=== PATIENT | female | born 2005 | race Caucasian/White ===

== ENCOUNTER 2024-08-26 10:57 | Inpatient (IN) | payer BC, MEDICAID ==
[2024-08-26] MEDS ORDERED: Sodium Chloride 0.9% 10 ML Syringe FLUSH PRN (12:33)
[2024-08-26] MEDS ORDERED: Lidocaine 1% 50 ML MDV INJECT PRN (12:33)
[2024-08-26] MEDS ORDERED: Oxytocin/0.9 % Sodium Chloride 30 UNIT/500 ML BAG IV SCH (12:45)
[2024-08-26 13:10] LABS: BASOPHILS PERCENT AUTO 0.2 % (0.0-1.0); EOSINOPHILS ABSOLUTE AUTO 0.1 K/mm3 (0.0-0.4); EOSINOPHILS PERCENT AUTO 0.6 % (0.0-6.0); HEMATOCRIT 31.5 % (37.0-47.0); HEMOGLOBIN 10.7 gm/dl (12.0-16.0); IMMATURE GRAN ABSOLUTE AUTO 0.03 K/mm3 (0.00-0.05); IMMATURE GRAN PERCENT AUTO 0.3 % (0.0-0.4); LYMPHOCYTES ABSOLUTE AUTO 2.2 K/mm3 (1.0-4.8); LYMPHOCYTES PERCENT AUTO 20.9 % (24.0-44.0); MEAN CORPUSCULAR HEMOGLOBIN 31.8 pg (28.0-32.0); MEAN CORPUSCULAR VOLUME 93.5 fl (83.0-99.0); MEAN PLATELET VOLUME 10.3 fl (9.4-12.3); MONOCYTES ABSOLUTE AUTO 0.9 K/mm3 (0.0-0.8); MONOCYTES PERCENT AUTO 8.2 % (0.0-8.0); NEUTROPHILS ABSOLUTE AUTO 7.4 K/mm3 (1.8-7.7); NEUTROPHILS PERCENT AUTO 69.8 % (41.0-71.0); PLATELET COUNT,PLT 214 K/mm3 (150-400); RED BLOOD CELL COUNT 3.37 M/mm3 (4.10-5.30); WHITE BLOOD CELL COUNT,WBC 10.55 K/mm3 (3.9-11.3)
[2024-08-26] MEDS: Lactated Ringers 1,000 ML IV SCH (13:50)
[2024-08-26] MEDS: Oxytocin/0.9 % Sodium Chloride 30 UNIT/500 ML BAG IV SCH (13:51)
[2024-08-26] MEDS ORDERED: diphenhydrAMINE 50 MG/ML SDV IVPUSH PRN (15:10)
[2024-08-26] MEDS ORDERED: ePHEDrine 50 MG/ML SDV IVPUSH PRN (15:10)
[2024-08-26] MEDS ORDERED: Bupivacaine/fentaNYL/NS 100 ML Bag EPIDUR PRN (15:10)
[2024-08-26] MEDS ORDERED: fentaNYL 100 MCG/2 ML SDV EPIDUR PRN (15:10)
[2024-08-26] MEDS: Nalbuphine 10 MG/1 ML Vial IVPUSH PRN (21:12)
[2024-08-26] MEDS: Ondansetron 4 MG/2 ML SDV IVPUSH PRN (22:35)
[2024-08-27] MEDS ORDERED: Simethicone 80 MG Tab.Chew PO PRN (00:52)
[2024-08-27] MEDS ORDERED: Hydrocortisone Acetate 25 MG Supp RECTAL PRN (00:52)
[2024-08-27] MEDS ORDERED: Magnesium Hydroxide 400 MG/5 ML Susp 30 ML Cup PO PRN (00:52)
[2024-08-27] MEDS ORDERED: Oxytocin/0.9 % Sodium Chloride 30 UNIT/500 ML BAG IV SCH (00:52)
[2024-08-27] MEDS: Witch Hazel Medicated Pads 40/Jar TOP PRN (01:58)
[2024-08-27] MEDS: Benzocaine/Menthol 20%-0.5% Spray 78 GM Cannister TOP PRN (01:58)
[2024-08-27] MEDS: Acetaminophen 325 MG Tab PO SCH ×3 (02:20→13:12)
[2024-08-27] MEDS: Prenatal Multivitamin with Calcium/Folic Acid/Iron Tab PO SCH (08:49)
[2024-08-27] MEDS: Docusate Sodium 100 MG Cap PO PRN (22:35)
[2024-08-28] MEDS: Acetaminophen/HYDROcodone 325-5 MG Tab PO ONE (11:00)
== END 2024-08-28 17:00 | disposition home or self-care (01) | DRG 560 ==
LOC: JD.OBCHECK 10:57 → JD.OB 11:02 → JD.OBCHECK 11:12 → JD.OB 11:13 → OBSVTOIN 23:20 → JD.OB 23:21
PROVIDERS: ADMIT Obstetrics & Gynecology; ATTEND Obstetrics & Gynecology
PROC: 10E0XZZ Delivery of Products of Conception, External Approach (ICD-10-PCS; principal; 2024-08-26)
PROC: 10907ZC Drainage of Amniotic Fluid, Therapeutic from Products of Conception, Via Natural or Artificial Opening (ICD-10-PCS; 2024-08-26)
PROC: 3E0P7VZ Introduction of Hormone into Female Reproductive, Via Natural or Artificial Opening (ICD-10-PCS; 2024-08-26)
DX: O99.334 Smoking (tobacco) complicating childbirth (principal); Z37.0 Single live birth; F17.210 Nicotine dependence, cigarettes, uncomplicated; O70.0 First degree perineal laceration during delivery; O77.0 Labor and delivery complicated by meconium in amniotic fluid; Z3A.37 37 weeks gestation of pregnancy; Z86.19 Personal history of other infectious and parasitic diseases; Z98.890 Other specified postprocedural states; Z90.89 Acquired absence of other organs
CPT/HCPCS: 36415; 59025; 59409; 82947; 84112; 85025; 86592; 86850; 86900; 86901; A9270-GY; J2300; J2405; J7120; J7999

== ENCOUNTER 2025-07-08 16:51 | Emergency (ER) | payer BC, MEDICAID ==
[2025-07-08 19:31] LABS: BASOPHILS ABSOLUTE AUTO 0.0 K/mm3 (0.0-0.2); BASOPHILS PERCENT AUTO 0.2 % (0.0-1.0); EOSINOPHILS ABSOLUTE AUTO 0.2 K/mm3 (0.0-0.4); EOSINOPHILS PERCENT AUTO 2.0 % (0.0-6.0); IMMATURE GRAN ABSOLUTE AUTO 0.01 K/mm3 (0.00-0.05); IMMATURE GRAN PERCENT AUTO 0.1 % (0.0-0.4); LYMPHOCYTES ABSOLUTE AUTO 2.7 K/mm3 (1.0-4.8); LYMPHOCYTES PERCENT AUTO 30.2 % (24.0-44.0); MEAN PLATELET VOLUME 10.7 fl (9.4-12.3); MONOCYTES ABSOLUTE AUTO 0.7 K/mm3 (0.0-0.8); MONOCYTES PERCENT AUTO 7.8 % (0.0-8.0); NEUTROPHILS ABSOLUTE AUTO 5.3 K/mm3 (1.8-7.7); NEUTROPHILS PERCENT AUTO 59.7 % (41.0-71.0); NRBC ABSOLUTE 0.00 (0.00-0.02); NRBC PERCENT 0.0 % (0.0-0.2); PLATELET COUNT,PLT 230 K/mm3 (150-400); RED BLOOD CELL COUNT 4.69 M/mm3 (4.10-5.30); WHITE BLOOD CELL COUNT,WBC 8.86 K/mm3 (3.9-11.3)
[2025-07-08 19:34] LABS: APPEARANCE,URINE CLEAR (Clear); GLUCOSE,URINE NEGATIVE (Negative); OCCULT BLOOD,URINE NEGATIVE (Negative)
[2025-07-08] MEDS: Ondansetron 4 MG/2 ML SDV IV STA (19:38)
[2025-07-08 19:41] LABS: BUPRENORPHINE SCREEN,URINE NEGATIVE (CUTOFF=10); METHADONE SCREEN, URINE NEGATIVE (CUTOFF=200); METHAMPHETAMINES SCREEN, URINE NEGATIVE (CUTOFF=500); OXYCODONE SCREEN,URINE NEGATIVE (CUT0FF=100); THC SCREEN,URINE 20 NG/ML PRESUMPTIVE POSITIVE (CUTOFF=50)
[2025-07-08 19:44] LABS: EPITHELIAL CELLS,URINE 0-5 /hpf (0-5)
[2025-07-08 19:46] LABS: A/G RATIO 1.5 (1-2); ALANINE AMINOTRANSFERASE,ALT 10.0 U/L (14-59); ASPARTATE AMNIOTRANSFERASE,AST 11.0 U/L (15-37); BILIRUBIN TOTAL 1.1 mg/dL (0.2-1.0); BLOOD UREA NITROGEN,BUN 11.0 mg/dL (7-18); CARBON DIOXIDE,CO2 24.0 mEq/L (21-32); CHLORIDE,CL 105.0 mEq/L (98-107); CREATINE KINASE,CK 37.0 U/L (26-192); CREATININE 0.7 mg/dL (0.55-1.02); EST CRCL DRUG DOSING (CG) 132.86 mL/min; ESTIMATED GFR 126.0 mL/min (>60); GLUCOSE RANDOM 95.0 mg/dL (70-99); POTASSIUM,K 3.6 mEq/L (3.5-5.1); PROTEIN TOTAL,TP 7.7 g/dl (6.4-8.2); SODIUM,NA 141.0 mEq/L (136-145)
[2025-07-08 19:48] LABS: AMPHETAMINES SCREEN, URINE NEGATIVE (CUTOFF=500)
[2025-07-08 19:48] LABS: ETHANOL BLOOD MEDICAL 0.0 gm% (0.00)
[2025-07-08] MEDS: cefTRIAXone 1 GM in Water For Injection, Sterile 10 ML IVPUSH STA (20:06)
[2025-07-08] MEDS: Iopamidol 612 MG/ML 100 ML Bottle IVPUSH ONE (20:21)
[2025-07-08] MEDS: Sodium Chloride 0.9% 10 ML Syringe FLUSH ONE (20:21)
== END 2025-07-08 21:45 | disposition home or self-care (01) ==
LOC: JD.ED 16:51
DX: N39.0 Urinary tract infection, site not specified (principal); Z79.899 Other long term (current) drug therapy; Z88.6 Allergy status to analgesic agent; Z88.0 Allergy status to penicillin
CPT/HCPCS: 36415; 74177; 80053; 80306; 80307; 81001; 82550; 83690; 83735; 84703; 85025; 96374; 96375; 99284; A9270; J0696; J2405; J7030; Q9967